=== PATIENT | male | born 1945 | race Caucasian/White ===

== ENCOUNTER 2022-06-16 07:27 | Emergency (ER) | payer MEDICARE ==
[~2022-06-16] VITALS: Ht 182.9 cm; Wt 108.4 kg
[2022-06-16] MEDS ORDERED: TDAP [DIPH/PERTUSSIS/TET] 0.5 ML VIAL IM ONE ×2 (07:51→08:00)
--- NOTE | 2022-06-16 08:30 | NUR ---
AT BEDSIDE FOR EVAL
--- NOTE | 2022-06-16 09:01 | NUR ---
[facility] FOR TRANSPORT WITH ETA OF 60 MINS.
--- NOTE | 2022-06-16 09:51 | NUR ---
EMT AT BEDSIDE TO PICKUP PT
--- NOTE | 2022-06-16 10:00 | NUR ---
Patient discharged back to [facility] via gurney, accompanied by 2 EMT. Written and verbal after care instructions given. Patient verbalizes understanding of instruction.
[2022-06-16 10:09] VITALS: BP 124/71
== END 2022-06-16 10:10 ==
LOC: ER 07:29
DX: S51.011A Laceration without foreign body of right elbow, initial encounter (principal); I48.91 Unspecified atrial fibrillation; Z88.0 Allergy status to penicillin; W01.0XXA Fall on same level from slipping, tripping and stumbling without subsequent striking against object, initial encounter; Y93.89 Activity, other specified; Y92.89 Other specified places as the place of occurrence of the external cause; Y99.8 Other external cause status
CPT/HCPCS: 99283; 12002; 90471; 90715; A6403

== ENCOUNTER 2023-08-17 14:23 | Emergency (ER) | payer MEDICARE ==
[~2023-08-17] VITALS: Ht 185.4 cm; Wt 106.6 kg
[2023-08-17] MEDS ORDERED: CLIN150C16 PO (15:02)
[2023-08-17] MEDS ORDERED: LIDO30CR TP (15:02)
[2023-08-17 17:37] VITALS: BP 119/63; TEMP 98; O2SAT 97
== END 2023-08-17 17:37 | disposition home or self-care (01) ==
LOC: ER 14:23
DX: L02.11 Cutaneous abscess of neck (principal); I48.91 Unspecified atrial fibrillation; N18.9 Chronic kidney disease, unspecified; Z88.0 Allergy status to penicillin

== ENCOUNTER 2023-11-10 08:45 | Inpatient (IN) | payer MEDICARE ==
[~2023-11-10] VITALS: Ht 185.4 cm; Wt 104.3 kg
[~2023-11-10 08:45] MED LIST: CLIN150C16 PO; LIDO30CR TP
[2023-11-10] MEDS ORDERED: APIX5TAB PO (10:19)
[2023-11-10] MEDS ORDERED: FURO-145 PO (10:19)
[2023-11-10] MEDS ORDERED: MELA3TAB41 PO (10:19)
[2023-11-10] MEDS ORDERED: MUPI22OI2 TP (10:19)
[2023-11-10] MEDS ORDERED: DORZ10DR11 LEFTEYE (10:19)
[2023-11-10] MEDS ORDERED: ACET-868 PO (10:19)
[2023-11-10] MEDS ORDERED: OXYB5TAB16 PO (10:19)
[2023-11-10] MEDS ORDERED: MEMA10TA PO (10:19)
[2023-11-10] MEDS ORDERED: QUET25TA PO (10:19)
[2023-11-10] MEDS ORDERED: GABA-532 PO (10:19)
[2023-11-10] MEDS ORDERED: PARO30TA4 PO (10:19)
[2023-11-10] MEDS ORDERED: ASPI-1169 PO (10:19)
[2023-11-10 10:23] LABS: APPEARANCE,URINE CLEAR (CLEAR); BILIRUBIN,URINE NEGATIVE (NEGATIVE); BLOOD, URINE 3+ Ery/uL (NEGATIVE); COLOR,URINE YELLOW (YELLOW); KETONES,URINE TRACE mg/dL (NEGATIVE); LEUKOCYTE ESTERASE ,URINE NEGATIVE (NEGATIVE); NITRITE, URINE NEGATIVE (NEGATIVE); PROTEIN,URINE 2+ mg/dl (NEGATIVE); UGLUCOSE NEGATIVE (NEGATIVE); UROBILINOGEN,URINE 0.2 EU/dL (0.2)
[2023-11-10 10:37] LABS: BASOPHILS % (AUTO) 0.5 % (0.0-2.0); EOSINOPHILS % (AUTO) 0.4 % (0.0-6.0); HEMATOCRIT 42 % (39-51); LYMPHOCYTES # (AUTO) 0.9 K/uL (0.8-4.8); LYMPHOCYTES % (AUTO) 8.9 % (20.0-44.0); MEAN CORPUSCULAR HEMOGLOBIN 30 PG (26.0-33.0); MEAN CORPUSCULAR HGB CONC 34 g/dl (31.0-36.0); MEAN CORPUSCULAR VOLUME 91 fL (80-96); MONOCYTES # (AUTO) 0.5 K/uL (0.1-1.30); MONOCYTES % (AUTO) 5.4 % (2.0-12.0); NEUTROPHILS # (AUTO) 8.6 K/uL (1.8-8.9); NEUTROPHILS % (AUTO) 84.8 % (43.0-81.0); PLATELET COUNT (AUTO) 173 K/uL (150-450); RED BLOOD CELL COUNT(AUTO) 4.58 MIL/uL (4.5-6.0); RED CELL DISTRIBUTION WIDTH 14.5 % (11.5-15.0); WHITE BLOOD COUNT (AUTO) 10.1 K/uL (4.3-11.0)
[2023-11-10 10:51] LABS: ADD URINE CULTURE NO; BACTERIA,URINE Rare /HPF (None Seen); RBC,URINE 21-50 /HPF (0-2); SQUAMOUS EPITHELIAL CELL,UR Few /HPF (None Seen)
[2023-11-10 11:00] LABS: ALANINE AMINOTRANSFERASE 40 U/L (12-78); ALBUMIN 3.9 g/dL (3.4-5.0); ALKALINE PHOSPHATASE 164 U/L (46-116); ASPARTATE AMINOTRANSFERASE 59 U/L (15-37); BILIRUBIN,DIRECT 0.2 mg/dL (0.0-0.2); CALCIUM, SERUM 9.6 mg/dL (8.5-10.1); CARBON DIOXIDE 27 mmol/L (21-32); CHLORIDE 100 mmol/L (98-107); CREATININE 1.3 mg/dL (0.6-1.3); GLUCOSE 134 mg/dL (74-106); POTASSIUM 4.1 mmol/L (3.5-5.1); SODIUM SERUM 136 mmol/L (136-145); UREA NITROGEN, BLOOD 17 mg/dL (7-18)
[2023-11-10] MEDS ORDERED: Z GUARD REMEDY 4 OZ OINT TP PRN (15:30)
[2023-11-10] MEDS ORDERED: DEXTROSE 50%-WATER 50 ML DISP.SYRIN IV PRN (15:30)
[2023-11-10] MEDS ORDERED: ONDANSETRON HCL/PF 4 MG/2 ML VIAL IVP PRN (15:30)
[2023-11-10] MEDS ORDERED: ACETAMINOPHEN 325 MG TABLET PO PRN (15:30)
[2023-11-10] MEDS ORDERED: MAGNESIUM HYDROXIDE 30 ML UDC PO PRN (15:30)
[2023-11-10] MEDS ORDERED: CEFTRIAXONE 1 G in IV D5W 50 ML IV SCH (17:00)
[2023-11-10] MEDS ORDERED: TIMOLOL MAL/DORZOLAM HCL OPHTH 10 ML BOTTLE LEFTEYE SCH (17:00)
[2023-11-10] MEDS: BLOOD SUGAR DIAGNOSTIC 1 EACH STRIP IN SCH (17:55)
[2023-11-10] MEDS: LEVOFLOXACIN (250MG) 250 MG TABLET PO SCH (17:57)
[2023-11-10] MEDS: QUETIAPINE FUMARATE 25 MG TABLET PO SCH (17:57)
[2023-11-10] MEDS: APIXABAN 5 MG TABLET PO SCH (17:58)
[2023-11-10] MEDS ORDERED: ENOXAPARIN SODIUM 40 MG/0.4 ML DISP.SYRIN SQ SCH (18:00)
[2023-11-10] MEDS: IV NS 0.9% 1,000 ML IV PRN (18:02)
[2023-11-10 20:00] VITALS: BP 126/83; TEMP 99.1; O2SAT 96
[2023-11-10] MEDS: GABAPENTIN 300 MG CAPSULE PO SCH (21:48)
[2023-11-10] MEDS: INSULIN REGULAR, HUMAN 100 UNIT/ML 3 ML VIAL SQ PRN (22:01)
[2023-11-11] VITALS: BP 113/74; TEMP 98.2; O2SAT 95
[2023-11-11 04:00] VITALS: BP 144/112; TEMP 98.4; O2SAT 95
[2023-11-11] MEDS: PANTOPRAZOLE 40 MG TABLET.DR PO SCH (07:43)
[2023-11-11 07:56] LABS: BASOPHILS % (AUTO) 0.3 % (0.0-2.0); EOSINOPHILS # (AUTO) 0.1 K/uL (0.0-0.7); HEMATOCRIT 36 % (39-51); HEMOGLOBIN 12.5 g/dL (13.5-17.5); LYMPHOCYTES # (AUTO) 1.3 K/uL (0.8-4.8); LYMPHOCYTES % (AUTO) 15.3 % (20.0-44.0); MEAN CORPUSCULAR HEMOGLOBIN 31 PG (26.0-33.0); MEAN CORPUSCULAR HGB CONC 34 g/dl (31.0-36.0); MEAN CORPUSCULAR VOLUME 91 fL (80-96); MONOCYTES # (AUTO) 0.7 K/uL (0.1-1.30); MONOCYTES % (AUTO) 8.5 % (2.0-12.0); NEUTROPHILS # (AUTO) 6.5 K/uL (1.8-8.9); NEUTROPHILS % (AUTO) 74.9 % (43.0-81.0); PLATELET COUNT (AUTO) 155 K/uL (150-450); RED BLOOD CELL COUNT(AUTO) 3.97 MIL/uL (4.5-6.0); RED CELL DISTRIBUTION WIDTH 14.5 % (11.5-15.0); WHITE BLOOD COUNT (AUTO) 8.6 K/uL (4.3-11.0)
[2023-11-11] MEDS: TIMOLOL MAL/DORZOLAM HCL OPHTH 10 ML BOTTLE LEFTEYE SCH (08:29)
[2023-11-11] MEDS: OXYBUTYNIN CHLORIDE 5 MG TABLET PO SCH (08:30)
[2023-11-11] MEDS: MEMANTINE HCL 5 MG TABLET PO SCH (08:30)
[2023-11-11] MEDS: PAROXETINE HCL 10 MG TABLET PO SCH (08:30)
[2023-11-11] MEDS: ASPIRIN 81 MG TAB.CHEW PO SCH (08:30)
[2023-11-11 08:36] LABS: CALCIUM, SERUM 9.1 mg/dL (8.5-10.1); CREATININE 1.1 mg/dL (0.6-1.3); PHOSPHORUS 3.7 mg/dL (2.5-4.9)
[2023-11-11 09:01] VITALS: BP 145/95; TEMP 99.1; O2SAT 99
[2023-11-11] MEDS: ENOXAPARIN SODIUM 40 MG/0.4 ML DISP.SYRIN SQ SCH (09:46)
[2023-11-11 12:00] VITALS: BP 127/78; TEMP 98.1; O2SAT 96
[2023-11-11] MEDS: METOPROLOL TARTRATE 25 MG TABLET PO SCH (12:22)
[2023-11-11 16:46] VITALS: BP 130/81; TEMP 98.4; O2SAT 94
[2023-11-11 20:00] VITALS: BP_SYST 118; BP_SYST 134; BP_DIAS 65; BP_DIAS 83; TEMP 97.7; TEMP 99.1; O2SAT 97; O2SAT 98
[2023-11-11] MEDS: ATORVASTATIN 10 MG TABLET PO SCH (21:15)
[2023-11-12] VITALS (7 sets, daily range): BP systolic 114–144; BP diastolic 60–100; TEMP 97.5–98.9; O2SAT 93–97
[2023-11-12 06:56] LABS: BASOPHILS % (AUTO) 0.5 % (0.0-2.0); EOSINOPHILS # (AUTO) 0.2 K/uL (0.0-0.7); EOSINOPHILS % (AUTO) 2.5 % (0.0-6.0); HEMATOCRIT 38 % (39-51); HEMOGLOBIN 12.9 g/dL (13.5-17.5); LYMPHOCYTES # (AUTO) 1.3 K/uL (0.8-4.8); LYMPHOCYTES % (AUTO) 15.9 % (20.0-44.0); MEAN CORPUSCULAR HEMOGLOBIN 32 PG (26.0-33.0); MEAN CORPUSCULAR HGB CONC 34 g/dl (31.0-36.0); MEAN CORPUSCULAR VOLUME 92 fL (80-96); MONOCYTES # (AUTO) 0.7 K/uL (0.1-1.30); MONOCYTES % (AUTO) 8.8 % (2.0-12.0); NEUTROPHILS % (AUTO) 72.3 % (43.0-81.0); PLATELET COUNT (AUTO) 134 K/uL (150-450); RED BLOOD CELL COUNT(AUTO) 4.07 MIL/uL (4.5-6.0); RED CELL DISTRIBUTION WIDTH 14.6 % (11.5-15.0); WHITE BLOOD COUNT (AUTO) 8.3 K/uL (4.3-11.0)
[2023-11-12 07:02] LABS: CALCIUM, SERUM 8.9 mg/dL (8.5-10.1); PHOSPHORUS 3.2 mg/dL (2.5-4.9); POTASSIUM 4.3 mmol/L (3.5-5.1)
[2023-11-13] VITALS (7 sets, daily range): BP systolic 116–146; BP diastolic 63–91; TEMP 97.3–99; O2SAT 94–99
[2023-11-13 09:42] LABS: CREATININE 1.1 mg/dL (0.6-1.3); PHOSPHORUS 3.8 mg/dL (2.5-4.9)
[2023-11-13 09:52] LABS: THYROID STIMULATING HORMONE 2.214 uIU/mL (0.358-3.74); URIC ACID 4.7 mg/dL (2.6-7.2)
[2023-11-13] MEDS ORDERED: METO25TA20 PO (12:11)
[2023-11-13] MEDS: POVIDONE-IODINE OINT 28.4 GM TUBE TP SCH (16:52)
== END 2023-11-13 17:30 | disposition home health service (06) | DRG 280 ==
LOC: ER 09:01 → TELE 15:33
PROVIDERS: ADMIT Nurse Practitioner Family; ATTEND Nurse Practitioner Acute Care
DX: I21.4 Non-ST elevation (NSTEMI) myocardial infarction (principal); G93.41 Metabolic encephalopathy; I13.0 Hypertensive heart and chronic kidney disease with heart failure and stage 1 through stage 4 chronic kidney disease, or unspecified chronic kidney disease; N39.0 Urinary tract infection, site not specified; E87.1 Hypo-osmolality and hyponatremia; I50.9 Heart failure, unspecified; N18.9 Chronic kidney disease, unspecified; Z66 Do not resuscitate; R26.9 Unspecified abnormalities of gait and mobility; E11.22 Type 2 diabetes mellitus with diabetic chronic kidney disease; E11.51 Type 2 diabetes mellitus with diabetic peripheral angiopathy without gangrene; G31.09 Other frontotemporal neurocognitive disorder; F02.80 Dementia in other diseases classified elsewhere, unspecified severity, without behavioral disturbance, psychotic disturbance, mood disturbance, and anxiety; N40.0 Benign prostatic hyperplasia without lower urinary tract symptoms; Z87.820 Personal history of traumatic brain injury; G93.89 Other specified disorders of brain; I48.91 Unspecified atrial fibrillation; K80.20 Calculus of gallbladder without cholecystitis without obstruction; Z79.01 Long term (current) use of anticoagulants; Z79.82 Long term (current) use of aspirin; Z88.0 Allergy status to penicillin; Z79.899 Other long term (current) drug therapy; S90.122A Contusion of left lesser toe(s) without damage to nail, initial encounter; S90.121A Contusion of right lesser toe(s) without damage to nail, initial encounter; X58.XXXA Exposure to other specified factors, initial encounter; Y92.9 Unspecified place or not applicable; W34.00XS Accidental discharge from unspecified firearms or gun, sequela
CPT/HCPCS: 36415; 70450-TC; 71045-TC; 80048-TC; 80061-TC; 80076-TC; 81001; 82533; 82962-TC; 83540-TC; 83735-TC; 84100-TC; 84443-TC; 84484-TC; 84550-TC; 85025-TC; 92526; 92611-TC; 93307-TC; 93970-TC; 97110-TC; 97530-TC; A4223; G0378; J1650; J1815; J7030

== ENCOUNTER 2025-08-24 11:12 | Inpatient (IN) | payer MEDICARE, OTHER ==
[~2025-08-24] VITALS: Ht 175.3 cm; Wt 122.9 kg
[~2025-08-24 11:12] MED LIST changes: +ACET-868 PO; +APIX5TAB PO; +ASPI-1169 PO; -CLIN150C16 PO; +DORZ10DR11 LEFTEYE; +FURO-145 PO; +GABA-532 PO; -LIDO30CR TP; +MELA3TAB41 PO; +MEMA10TA PO; +METO25TA20 PO; +MUPI22OI2 TP; +OXYB5TAB16 PO; +PARO30TA4 PO; +QUET25TA PO
--- NOTE | 2025-08-24 11:25 | NUR ---
[facility] FOR NOTED BLOOD IN HIS DIAPER TODAY. PLACED IN BED6, AAOX3, BREATHING EVEN AND UNLABORED SATURATING AT 97%RA
--- NOTE | 2025-08-24 11:27 | NUR ---
[facility] SCREENING TOOL COMPLETED
--- NOTE | 2025-08-24 11:27 | NUR ---
CONTACTED NURSE SUP FOR BED
--- NOTE | 2025-08-24 11:42 | NUR ---
[facility] SWAB COLLECTED AND SENT
--- NOTE | 2025-08-24 11:43 | NUR ---
322-1, ER ADMITTING AWARE
[2025-08-24] MEDS ORDERED: MELA5TAB PO (11:55)
[2025-08-24] MEDS ORDERED: GUAI-755 PO (11:55)
[2025-08-24] MEDS ORDERED: METO25TA6 PO (11:55)
[2025-08-24] MEDS ORDERED: ATOR20TA PO (11:55)
[2025-08-24] MEDS ORDERED: HYDR-4076 PO (11:55)
[2025-08-24] MEDS ORDERED: MELA5TAB25 PO (11:55)
[2025-08-24] MEDS ORDERED: METF-881 PO (11:55)
[2025-08-24] MEDS ORDERED: TRAZ-182 PO (11:55)
[2025-08-24] MEDS ORDERED: TRAZ-257 PO (11:55)
--- NOTE | 2025-08-24 12:00 | NUR ---
blood drawn and sent to lab
[2025-08-24] MEDS ORDERED: LIDOCAINE 2% JEL UROJET 10 ML MM ONE (12:01)
[2025-08-24 12:04] LABS: RED BLOOD CELL COUNT(AUTO) 3.92 MIL/uL (4.5-6.0); RED CELL DISTRIBUTION WIDTH 16.4 % (11.5-15.0); WHITE BLOOD COUNT (AUTO) 3.6 K/uL (4.3-11.0)
[2025-08-24 12:13] LABS: ASPARTATE AMINOTRANSFERASE 38 U/L (15-37); CALCIUM, SERUM 9.3 mg/dL (8.5-10.1); CREATININE 1.0 mg/dL (0.6-1.3); SODIUM SERUM 139 mmol/L (136-145); TOTAL PROTEIN, SERUM 7.7 g/dL (6.4-8.2); UREA NITROGEN, BLOOD 24 mg/dL (7-18)
--- NOTE | 2025-08-24 12:15 | NUR ---
3WAY WEISS CATH INSERTED WITH LOCAL ANESTHESIA UROJET URINE OUTPUT CLEAR- NO BLEEDING MD MADE AWARE, SAMPLE SENT TO LAB.
--- NOTE | 2025-08-24 12:25 | NUR ---
urine sample sent to lab
[2025-08-24 12:33] LABS: PLATELET COUNT (AUTO) 64 K/uL (150-450)
[2025-08-24 12:40] LABS: INR 1.23 (0.91-1.10)
[2025-08-24 12:47] LABS: LACTIC ACID 2.2 mmol/L (0.4-2.0)
[2025-08-24] MEDS ORDERED: ZOLPIDEM TARTRATE 5 MG TABLET PO PRN (13:00)
[2025-08-24] MEDS ORDERED: ONDANSETRON HCL/PF 4 MG/2 ML VIAL IVP PRN (13:00)
[2025-08-24] MEDS ORDERED: ACETAMINOPHEN 325 MG TABLET PO PRN (13:00)
[2025-08-24] MEDS ORDERED: MAGNESIUM HYDROXIDE 30 ML UDC PO PRN (13:00)
[2025-08-24] MEDS ORDERED: Z GUARD REMEDY 4 OZ OINT TP PRN (13:00)
[2025-08-24] MEDS ORDERED: MAG HYDROX/AL HYDROX/SIMETH 30 ML UDC PO PRN (13:00)
--- NOTE | 2025-08-24 13:02 | NUR ---
REPORT GIVEN TO JOSEY MENDOZA ROOM 322-1 FOR ABELARDO
[2025-08-24 13:06] LABS: APPEARANCE,URINE Turbid (CLEAR); BLOOD, URINE Large Ery/uL (NEGATIVE); LEUKOCYTE ESTERASE ,URINE Small (NEGATIVE); UGLUCOSE Negative (NEGATIVE)
[2025-08-24 13:07] LABS: ADD URINE CULTURE YES; NITRITE, URINE POSITIVE (NEGATIVE); SQUAMOUS EPITHELIAL CELL,UR Rare /HPF (None Seen)
[2025-08-24] MEDS ORDERED: LEVOFLOXACIN 750 MG /D5W 150ML 150 ML IV ONE (13:13)
[2025-08-24 13:18] VITALS: BP 127/92; TEMP 88.7; O2SAT 98
[2025-08-24] MEDS: LEVOFLOXACIN 750 MG /D5W 150ML 750 MG in PREMIX 1 EA IV SCH (13:19)
--- NOTE | 2025-08-24 13:33 | NUR ---
PATIENT TRANSFERED AND ADMITTED FOR ABELARDO
--- NOTE | 2025-08-24 14:00 | NUR ---
MS QA SPECIALIST NOTES ADMITTED PATIENT FROM ER TO UNIT VIA RNEY AT 1318 TRANSPORTED BY ER STAFF WITH DX OF HEMATURIA. REPORT GIVEN BY TRESA MENDOZA. PATIENT IS A/O X1, VERY WEAK AND LETHARGIC. ON ROOM AIR, BREATHING EVEN AND UNLABORED, NO S/S OF ACUTE RESPIRATORY DISTRESS NOTED. PATIENT IS MOUTH BREATHER. VITAL SIGNS TAKEN AND RECORDED. PATIENT NOTED WITH COLD AND CLAMMY SKIN AND LOW TEMPERATURE (88.7F), PATIENT PLACED ON HEATED BEAR HUGGER. SKIN ASSESSMENT PERFORMED, PHOTOS OF SKIN ISSUES TAKEN AND PLACED IN CHART. WITH IV ACCESS ON RIGHT FA #20G, PATENT, INTACT, SL. PATIENT ORIENTED TO AM STAFF AND HOW TO USE THE CALL LIGHT. ALL BELONGINGS ACCOUNTED FOR BY ASHLEY Clifford. ALL SAFETY PRECAUTIONS IMPLEMENTED: BED PLACED IN LOW AND LOCKED POSITION, SIDE-RAILS UP X3, BED ALARM ON, CALL LIGHT AND TRAY TABLE WITHIN REACH. CN DANNY AWARE OF ADMISSION
[2025-08-24 14:21] LABS: LYMPHOCYTES % (MANUAL) 14 % (16-48); MONOCYTES % (MANUAL) 3 % (0-11.0); NEUTROPHILS % (MANUAL) 83 (42-76); PLATELET ESTIMATE DECREASED
[2025-08-24 16:00] VITALS: BP 117/92; O2SAT 98
--- NOTE | 2025-08-24 17:37 | NUR ---
RN NOTE RECHECKED TEMPERATURE AFTER PLACING VALERIE HUGGER ON PATIENT: TEMP 91.8F
--- NOTE | 2025-08-24 18:57 | NUR ---
MS RN CLOSING NOTE LEFT PATIENT AWAKE IN BED. A/O X 2-3, FORGETFUL. ON ROOM AIR, BREATHING EVEN AND UNLABORED, NO S/S OF ACUTE RESPIRATORY DISTRESS NOTED, PATIENT IS A MOUTH BREATHER. WITH 3-WAY WEISS CATHETER CONNECTED TO URINE BAG DRAINING VIA GRAVITY, SOME CLOTS NOTED IN URINE OUTPUT. WITH IV ACCESS ON LEFT HAND #20G, INTACT, PATENT, SL. WITH VALERIE HUGGER HEATED BLANKET. ALL DUE MEDS GIVEN AND NEEDS MET. ALL FALL AND SAFETY MEASURES MAINTAINED PER HOSPITAL PROTOCOL. PLAN OF CARE ONGOING. WILL ENDORSE PLAN OF CARE TO RADIOLOGY RESIDENT NURSE.
--- NOTE | 2025-08-24 19:53 | NUR ---
MS RN OPENING NOTES PATIENT AWAKE AND RESTING COMFORTABLY ON BED WITH HEAD OF BED ELEVATED. ALERT AND ORIENTED X 1, NOTED TO HAVE CONFUSION. CALM AND COOPERATIVE AT THIS TIME DESPITE CONFUSION. ON ROOM AIR SATURATING WELL WITH SPO2 OF 98% AND WITH EVEN AND NONLABORED BREATHING. NO CARDIAC OR RESPIRATORY DISTRESS NOTED AT THIS TIME. NO NONVERBAL OR VERBAL CUES OF PAIN NOTED. WITH IV ACCESS ON HIS LEFT HAND GAUGE # 20 ON SALINE LOCKED, PATENT, INTACT AND FLUSHING WELL. ON BED REST. WITH 3 WAY WEISS CATHETER DRAINING URINE VIA GRAVITY AND URINE BAG PLACED BELOW THE BLADDER. NO HEMATURIA NOTED AT THIS TIME. ON VALERIE HUGGER BLANKET. ALL FALL AND SAFETY MEASURES IMPLEMENTED: BED IN LOWEST AND LOCKED POSITION, BED ALARM ON, SIDE RAILS X 3, CALL LIGHT AND TABLE PLACED WITHIN PATIENT'S REACH. NO FURTHER NEEDS NOTED AT THIS TIME.
[2025-08-24 20:00] VITALS: BP 126/62; TEMP 97.3; O2SAT 98
[2025-08-25] VITALS (17 sets, daily range): BP systolic 87–134; BP diastolic 49–93; TEMP 98.6–104.4; O2SAT 92–100
[2025-08-25] MEDS: IV 1/2NS 1000 ML 1,000 ML IV PRN (05:19)
--- NOTE | 2025-08-25 05:50 | NUR ---
MS RN NOTES BED BATH PROVIDED WITH THE HELP OF ASHLEY EASLEY. BED LINES CHANGED.
--- NOTE | 2025-08-25 07:01 | NUR ---
MS RN CLOSING NOTES PATIENT MOSTLY AWAKE THE WHOLE SHIFT AND RESTING ON BED WITH HEAD OF BED ELEVATED. ALERT AND ORIENTED X 1, NOTED TO BE CONFUSED. CALM AND COOPERATIVE WITHIN THE SHIFT DESPITE CONFUSION. STILL ON ROOM AIR SATURATING WELL WITH SPO2 OF 98% AND WITH EVEN AND NONLABORED BREATHING. NO CARDIAC OR RESPIRATORY DISTRESS NOTED WITHIN THE SHIFT. NO NONVERBAL OR VERBAL CUES OF PAIN NOTED. STILL WITH IV ACCESS ON HIS LEFT HAND GAUGE # 20 PATENT, INTACT AND INFUSING 1/2 NS AT 60 ML/HR WELL. ON BED REST. STILL WITH 3 WAY WEISS CATHETER DRAINING TEA COLORED URINE. URINE BAG EMPTIED AND RECORDED. NO HEMATURIA NOTED WITHIN THE SHIFT. STILL ON VALERIE HUGGER BLANKET. KEPT SAFE AND COMFORTABLE. ALL NURSING NEEDS AND CONCERNS ATTENDED. ALL FALL AND SAFETY MEASURES MAINTAINED: BED STILL IN LOWEST AND LOCKED POSITION, BED ALARM ON, SIDE RAILS X 3, CALL LIGHT AND TABLE PLACED WITHIN PATIENT'S REACH. WILL ENDORSE TO MORNING SHIFT RN FOR CONTINUITY OF CARE.
[2025-08-25] MEDS: PANTOPRAZOLE 40 MG TABLET.DR PO SCH (07:30)
[2025-08-25 07:39] LABS: PLATELET COUNT (AUTO) 98 K/uL (150-450); RED BLOOD CELL COUNT(AUTO) 3.88 MIL/uL (4.5-6.0); RED CELL DISTRIBUTION WIDTH 17.2 % (11.5-15.0); WHITE BLOOD COUNT (AUTO) 6.7 K/uL (4.3-11.0)
[2025-08-25 08:38] LABS: ABG BASE EXCESS 1.5 mmol/L (-2.0-3.0); ABG OXYGEN SATURATION 86.8 % (94.0-98.0); ABG PCO2 30.3 mmHg (35.0-48.0); ABG PH 7.512 (7.350-7.450); ABG PO2 48.0 mmHg (83.0-108.0); ABG TOTAL HEMOGLOBIN 12.9 G/dL (13.5-17.5); FLOW, BLOOD GAS 5.00 L/min (0.00-30.00); FRACTIONATED INSPIRED OXYGEN 40.0 %; SITE, ABG RIGHT RADIAL
--- NOTE | 2025-08-25 08:43 | NUR ---
RN OPENING NOTES PT A/OX1. PATIENT BREATHING LABORED WITH SOB. O2 SAT 89, BP 169/146 AND HEART RATE 126. TELE APPLIED TO PATIENT AND READING WAS AFIB I 140S. RT AND MD NOTIFIED. CXR AND ABG, AND EKG STAT ORDERED. 5L NC AND SUCTIONING APPLIED TO PATIENT AND O2SAT READING 91. MD ORDERED PATIENT TRANSFER TO ICU. TRANSFERRED TO ICU ROOM 257 AND REPORT GIVEN TO MARIO MENDOZA
[2025-08-25 08:53] LABS: LDL 37.0 mg/dL (0-99)
[2025-08-25] MEDS: FUROSEMIDE 20 MG TABLET PO SCH (09:00)
[2025-08-25] MEDS: QUETIAPINE FUMARATE 25 MG TABLET PO SCH (09:00)
[2025-08-25] MEDS ORDERED: HEPARIN INFUSION/D5W 500 ML IV PRN (09:00)
[2025-08-25] MEDS: OXYBUTYNIN CHLORIDE 5 MG TABLET PO SCH (09:00)
--- NOTE | 2025-08-25 09:00 | NUR ---
ICU/RN PT TRANSFERRED FROM [facility] UNIT.DUE TO SOB RR MORE THEN 50. PLACED ON 5L N/C SAT O2-95%.HR-130-140 BPM A-FIB. T-104.4. ALOC . RESPONSIVE ON PAIN STIMULATION.F/C IN PLACE DRAINING WITH RANDY URINE WITH BLOOD CLOTH. BILATERAL LOWER LEGS EDEMA PRESENT.LABS REVIEW. COOLING MEASURES PROVIDED.
--- NOTE | 2025-08-25 09:20 | NUR ---
MIDLINE RN NOTES RIGHT ARM ULTRASOUND PERFORMED TO IDENTIFY ADEQUATE VEIN FOR MIDLINE INSERTION. RIGHT ARM PREPPED USING STERILE TECHNIQUE. POWERGLIDE 18G/10CM WAS INSERTED AT RIGHT BASILIC VEIN WITH EASE, GOOD NON PULSATILE BLOOD RETURN, SECURED WITH INTERLOCK DEVICE AND PLACED BIOPATCH. DRESSED USING NORMAL STERILE FASHION. EACH PORT WAS ASPIRATED WITH VENOUS BLOOD AND EACH PORT WAS FLUSHED WITH 10ML OF NORMAL SALINE. PROCEDURE WELL TOLERATED BY THE PT. SUPERVISED BY DR.EM LOZANO PhD. ENDORSED TO MARIO MENDOZA.
[2025-08-25] MEDS ORDERED: IOHEXOL-350 100 ML VIAL IV ONE (09:52)
[2025-08-25] MEDS ORDERED: IV NS 0.9% 250 ML IV ONE (09:53)
[2025-08-25] MEDS ORDERED: CT SWABBABLE VALVE TRANS SET 1 EA INFUS.SET MC ONE (09:53)
[2025-08-25] MEDS ORDERED: FUROSEMIDE 20 MG/2 ML VIAL IV SCH (10:00)
--- NOTE | 2025-08-25 10:10 | NUR ---
ICU/RN CT HEAD ,AND CT PULMONARY ANGIOGRAM DONE ORDERED. COOLING BLANKET ON.DUE MEDS ARE GIVEN ORDERED.REPOSITION FOR COMFORT.
[2025-08-25] MEDS: ACETAMINOPHEN 650 MG/SUPP.RECT RC PRN (10:29)
[2025-08-25] MEDS: FUROSEMIDE 40 MG/4 ML VIAL IV SCH (10:29)
[2025-08-25 10:30] LABS: CALCIUM, SERUM 9.4 mg/dL (8.5-10.1); CREATININE 1.6 mg/dL (0.6-1.3); PHOSPHORUS 2.9 mg/dL (2.5-4.9); SODIUM SERUM 141.0 mmol/L (136-145); UREA NITROGEN, BLOOD 26.0 mg/dL (7-18)
[2025-08-25] MEDS: PANTOPRAZOLE 40 MG VIAL IV SCH (10:30)
[2025-08-25 10:46] LABS: IRON, SERUM 63.0 ug/dl (50-175)
[2025-08-25] MEDS ORDERED: DOSING PER PHARMACY-VANCOMYCIN IV XX PRN (13:00)
[2025-08-25] MEDS ORDERED: DOSING PER PHARMACY-CEFEPIME IVPB XX PRN (13:00)
[2025-08-25 13:41] LABS: INR 1.39 (0.91-1.10)
[2025-08-25 13:41] LABS: LYMPHOCYTES % (MANUAL) 6 % (16-48); MONOCYTES % (MANUAL) 6 % (0-11.0); NEUTROPHILS % (MANUAL) 88 (42-76); PLATELET ESTIMATE DECREASED
[2025-08-25] MEDS ORDERED: LEVOFLOXACIN 750 MG /D5W 150ML 750 MG in PREMIX 1 EA IV SCH (14:00)
[2025-08-25] MEDS: CEFEPIME 1 GM in IV D5W 50 ML IV SCH (14:02)
[2025-08-25] MEDS: VANCOMYCIN HCL 1.25 GM in IV D5W 250 ML IV ONE ×2 (14:03→15:58)
[2025-08-25] MEDS: TIMOLOL MAL/DORZOLAM HCL OPHTH 10 ML BOTTLE LEFTEYE SCH (16:08)
--- NOTE | 2025-08-25 16:35 | NUR ---
ICU/RN PM CARE PROVIDED. PT IS AWAKE,ALERT,O-1.CONFUSED . SPEECH DELAY. DUE MEDS ARE GIVEN ORDERED,NPO.PO MEDS HOLD ,HIGH RISK OF ASPIRATION ,HAS SOME COUGH ,SWALLOW EVALUATION ORDERED. V/S STABLE,AFEBRILE,NO PAIN REPORTED AT THIS TIME. REPOSITION FOR COMFORT. CONTINUE MONITORING.
[2025-08-25] MEDS: METOPROLOL TARTRATE 25 MG TABLET PO SCH (17:30)
--- NOTE | 2025-08-25 20:00 | NUR ---
curriculum counselor, bed side swallow evaluation patient failed.
--- NOTE | 2025-08-25 20:02 | NUR ---
SUPERVISOR PAPER MACHINE. INITIAL ASSESSMENT. RECEIVED THE PT REST IN BED. AOX3. OXYGEN 2L VIA NASAL CANNULA. SAT 99%. NO ACUTE DISTRESS NOTED. X RAY SERVICE TECHNICIAN SHOWING A FIB. HOB ELEVATED. IV RT UPPER ARM MID LINE.TKO RUNNING. FC PATENT URINE DRAINING. NO HEMATURIA PRESENT.EJD LOWER EXTREMITY DISCOLORATION, HX OF PVD. TEMPERATURE IS 98.5. WILL MONITOR VITALS.
[2025-08-25] MEDS: TRAZODONE 50 MG TABLET PO SCH (22:00)
[2025-08-25] MEDS: GABAPENTIN 300 MG CAPSULE PO SCH (22:00)
[2025-08-25] MEDS: ATORVASTATIN 10 MG TABLET PO SCH (22:00)
--- NOTE | 2025-08-25 22:06 | NUR ---
APPLE SORTER. LIPITOR, NEURONTIN AND DESYREL NOT GIVEN AT 2200 DUE TO PATIENT COUGHING , SWALLOW EVALUATION SCHEDULED FOR TOMORROW . REPAIR MILLER SHOLA NOTIFIED.
[2025-08-26] VITALS (35 sets, daily range): BP systolic 101–143; BP diastolic 62–86; TEMP 97.8–98.1; O2SAT 95–99
--- NOTE | 2025-08-26 03:37 | NUR ---
ICU AM an care given. remaining same oxYgen tolerated well. satURATION N99%. NO ACUTE DISTRESS NOTED. CUSTOMS AND BORDER PROTECTION INSPECTOR SHOWING. A FIB. ; FC PATENT. IV RT UPPER ARM MID LINE. TKO RUNNING. HOB ELEVATED. TURN A,D REPOSIYION Q2H WILL CONTINUE TO MONITOR VITALS.
[2025-08-26 04:55] LABS: PLATELET COUNT (AUTO) 82 K/uL (150-450); RED BLOOD CELL COUNT(AUTO) 3.69 MIL/uL (4.5-6.0); RED CELL DISTRIBUTION WIDTH 17.0 % (11.5-15.0); WHITE BLOOD COUNT (AUTO) 5.6 K/uL (4.3-11.0)
[2025-08-26 05:04] LABS: ASPARTATE AMINOTRANSFERASE 30.0 U/L (15-37); CALCIUM, SERUM 9.1 mg/dL (8.5-10.1); CREATININE 1.7 mg/dL (0.6-1.3); PHOSPHORUS 3.6 mg/dL (2.5-4.9); TOTAL PROTEIN, SERUM 7.1 g/dL (6.4-8.2); UREA NITROGEN, BLOOD 30.0 mg/dL (7-18)
[2025-08-26 05:43] LABS: SODIUM SERUM 138.0 mmol/L (136-145)
[2025-08-26 06:03] LABS: LYMPHOCYTES % (MANUAL) 21 % (16-48); MONOCYTES % (MANUAL) 12 % (0-11.0); NEUTROPHILS % (MANUAL) 67 (42-76); PLATELET ESTIMATE DECREASED
--- NOTE | 2025-08-26 07:29 | NUR ---
EVIDENCE CUSTODIAN.COUNTY HEALTH OFFICER SHOWING PAUSES DURING SHIFT. DR BERNABE NOTIFIED.
--- NOTE | 2025-08-26 07:45 | NUR ---
ICU/RN PT IS RESTING.ON 2 L N/C SAT O2-98%.V/S STABLE,AFEBRILE.NO PAIN REPORTED ATT HIS TIME. CONTROL A-FIB ON MONITOR. PT IS AWAKE,ALERT-1-2. RIGHT UPPER ARM MIDLINE.F/C IN PLACE DRAINING WITH YELLOW URINE.LABS REVIEW.MD AWARE. REPOSITION FOR COMFORT.
[2025-08-26] MEDS: MEMANTINE HCL 5 MG TABLET PO SCH (08:41)
[2025-08-26] MEDS: PANTOPRAZOLE 40 MG TABLET.DR PO SCH (08:41)
[2025-08-26] MEDS: APIXABAN 5 MG TABLET PO SCH (08:57)
--- NOTE | 2025-08-26 09:00 | NUR ---
ICU/RN DUE MEDS ARE GIVEN CRUSH AND MIX WITH APPLE SAUCE.
[2025-08-26 13:50] LABS: CREATININE, URINE 141.0 MG/DL (30.0-125.0); URINE SODIUM, RANDOM 63.0 mmol/l (40-220); URINE TOTAL PROTEIN 75.2 mg/dL (0-11.9)
[2025-08-26 14:14] LABS: APPEARANCE,URINE SLIGHTLY CLOUDY (CLEAR); BLOOD, URINE 2+ Ery/uL (NEGATIVE); LEUKOCYTE ESTERASE ,URINE TRACE (NEGATIVE); NITRITE, URINE NEGATIVE (NEGATIVE); UGLUCOSE NEGATIVE (NEGATIVE)
[2025-08-26 15:12] LABS: SQUAMOUS EPITHELIAL CELL,UR Few /HPF (None Seen)
[2025-08-26 15:13] LABS: ADD URINE CULTURE YES
[2025-08-26 15:41] LABS: EOSINOPHIL,URINE None Seen
[2025-08-26] MEDS ORDERED: VANCOMYCIN HCL 1.25 GM in IV D5W 250 ML IV SCH (16:00)
--- NOTE | 2025-08-26 17:15 | NUR ---
ICU/RN PT HAS HEMATURIA. VONNIE PO HOLD. NOTIFIED.
--- NOTE | 2025-08-26 17:53 | NUR ---
ICU/RN PM CARE PROVIDED.PT EATS 100% FROM HIS DINNER TRAY.NEED ASSISTANCE. DUE MEDS ARE GIVEN ORDERED.V/S STABLE AFEBRILE.NO PAIN REPORTED AT THIS TIME. CONTINUE MONITORING.
--- NOTE | 2025-08-26 19:20 | NUR ---
LIQUOR DEPARTMENT MANAGER NOTES: Received patient in bed, alert and oriented to person, place, and time. Denies shortness of breath or chest pain. On 2L O2 via nasal cannula, SpO2 98%. awake overnight monitor shows atrial fibrillation with ventricular rate 80s bpm. Patient resting comfortably in bed, no acute distress observed. KASSIE ML 18G right upper arm intact and patent, normal saline at TKO rate infusing without signs of infiltration or phlebitis. Martinez catheter in place draining reddish-colored urine by gravity, 30 ML. Reviewed laboratory results with no critical values reported. Safety measures in place: bed in low position, call light within reach, bed alarm activated. Will continue plan of care.
[2025-08-27] VITALS (11 sets, daily range): BP systolic 116–145; BP diastolic 68–124; TEMP 97.7–98.2; O2SAT 96–100
[2025-08-27 05:13] LABS: PLATELET COUNT (AUTO) 89 K/uL (150-450); RED BLOOD CELL COUNT(AUTO) 3.71 MIL/uL (4.5-6.0); RED CELL DISTRIBUTION WIDTH 16.6 % (11.5-15.0); WHITE BLOOD COUNT (AUTO) 7.5 K/uL (4.3-11.0)
[2025-08-27 05:22] LABS: ASPARTATE AMINOTRANSFERASE 32.0 U/L (15-37); CALCIUM, SERUM 9.1 mg/dL (8.5-10.1); CREATININE 1.2 mg/dL (0.6-1.3); PHOSPHORUS 3.4 mg/dL (2.5-4.9); SODIUM SERUM 138.0 mmol/L (136-145); TOTAL PROTEIN, SERUM 7.5 g/dL (6.4-8.2); UREA NITROGEN, BLOOD 26.0 mg/dL (7-18)
[2025-08-27 05:25] LABS: CREATINE KINASE, TOTAL 138.0 U/L (39-308)
[2025-08-27 06:08] LABS: LYMPHOCYTES % (MANUAL) 22 % (16-48); MONOCYTES % (MANUAL) 10 % (0-11.0); NEUTROPHILS % (MANUAL) 68 (42-76); PLATELET ESTIMATE DECREASED
--- NOTE | 2025-08-27 06:44 | NUR ---
ASSEMBLER SURGICAL GARMENT NOTES: No significant change of condition, remains on 2L O2 NC, saturating 100%. Bedside monitor shows: afib at the 70s BPM. No acute distress noted all through the shift. Martinez cath in place, urine draining freely by gravity. All due meds given as ordered. Labs reviewed, no critical lab results reported. AM care and bedbath rendered. Safety measures in place. Will endorse to incoming day shift nurse for continuity of care.
--- NOTE | 2025-08-27 07:55 | NUR ---
PATIENT DOWNGRADED TO TELEMETRY, PER DR ORDER; TRANSFERRED SAFELY, PER ACLS PROTOCOL, TO TELEMETRY 3WEST/ RM 316-1; BEDSIDE REPORT GIVEN TO HOME CARE SCHEDULER.
--- NOTE | 2025-08-27 08:10 | NUR ---
RN NOTE Received pt from ICU via hospital bed for continuation of care.
--- NOTE | 2025-08-27 10:00 | NUR ---
RN NOTE Pt pulled out his norwood and removed tele monitor, reoriented pt and reinserted norwood.
[2025-08-27] MEDS: FUROSEMIDE 40 MG/4 ML VIAL IV SCH (10:29)
[2025-08-27] MEDS: POTASSIUM CHLORIDE 20 MEQ TAB.PRT.SR PO SCH (10:30)
[2025-08-27] MEDS: AMOX/CLAVULANATE 875 MG TABLET PO SCH (13:03)
--- NOTE | 2025-08-27 18:03 | NUR ---
RN NOTE Eliquis tab due at 0900 and 1700 not given, pt with pinkish color urine. Pt also pulled out norwood in the morning with bleeding noted.
--- NOTE | 2025-08-27 18:42 | NUR ---
RN CLOSING NOTE Pt resting in bed. A/O x 2, forgetful, no pain/discomfort noted at this time. On O2 via nc at 2lpm, tolerating well. With KASSIE midline, sl. With norwood connected to urine bag draining via gravity, orange urine. On tele monitor with current reading of afib-76 controlled. With mittens in bilateral wrist, skin and pulse checked. Needs attended. Safety measures maintained. Will endorse mando to car shifter.
--- NOTE | 2025-08-27 19:30 | NUR ---
ECOSYSTEM ECOLOGY PROFESSOR OPENING NOTES RECEIVED PT IN BED, ASLEEP AWAKENS EASILY, A/O X2. ON 2L O2 VIA NC, RESPIRATIONS EVEN AND UNLABORED. ON TELE MONITORING WITH CURRENT READING OF AFIB CONTROLLED AT RATE OF 70S. ON WEISS CATH TO GRAVITY , NOTED WITH ORANGE COLORED URINE OUTPUT. PT ON JED MITTENS. IV ACCESS AT KASSIE ML ON SL, PATENT AND INTACT. DENIES PAIN OR DISTRESS AT THIS TIME. SAFETY PRECAUTIONS IN PLACE: BED AT LOWEST AND LOCKED POSITION, SIDE RAILS UP X3, BED ALARM ON, CALL LIGHT BUTTON AND TABLE WITHIN REACH. PLAN OF CARE ONGOING -
[2025-08-28] VITALS: BP 116/74; TEMP 97.2; O2SAT 100
[2025-08-28 04:21] VITALS: BP 116/61; TEMP 97.7; O2SAT 100
--- NOTE | 2025-08-28 07:20 | NUR ---
INTERNET E COMMERCE SPECIALIST CLOSING NOTE PT IN BED, ASLEEP, AWAKENS EASILY A/OX2. REMAINED STABLE ON 2L O2 VIA NC, RESPIRATIONS EVEN AND UNLABORED. IV ACCESS KEPT ON SL. TELE READS AFIB CONTROLLED WITH RATE OF 60S. ON WEISS WITH CLEAR RANDY URINE OUTPUT TOTAL OF 550 ML, 1 BM. ALL DUE MEDS GIVEN, ALL NEEDS ATTENDED. KEPT PT CLEAN AND DRY. SAFETY PRECAUTIONS MAINTAINED. PT REMAINED STABLE THROUGHOUT SHIFT - ENDORSED TO AM NURSE FOR ABELARDO.
[2025-08-28 07:32] LABS: PLATELET COUNT (AUTO) 88 K/uL (150-450); RED BLOOD CELL COUNT(AUTO) 3.51 MIL/uL (4.5-6.0); RED CELL DISTRIBUTION WIDTH 16.6 % (11.5-15.0); WHITE BLOOD COUNT (AUTO) 5.4 K/uL (4.3-11.0)
--- NOTE | 2025-08-28 07:35 | NUR ---
PEOPLESOFT BUSINESS ANALYST OPENING NOTES RECEIVED PT IN BED, ASLEEP. ON WEISS CATH WITH ORANGE COLORED URINE OUTPUT PT IS A/O X2 FORGETFUL DUE TO DEMENTIA.PT ON JED MITTENS DUE TO SAFETY . ON 2L O2 VIA NC, BREATHING EVEN AND UNLABORED. NO INDICATION OF ACUTE RESPIRATORY DISTRESS NOTED ON TELE MONITORING WITH CURRENT READING OF AFIB CONTROLLED AT RATE OF 70S. IV ACCESS KASSIE ML ON SL, PATENT AND INTACT. ALL FALL AND SAFETY PRECAUTIONS IN PLACE: BED AT LOWEST AND LOCKED POSITION, SIDE RAILS UP X3, BED ALARM ON, CALL LIGHT BUTTON AND TABLE WITHIN REACH. PLAN OF CARE ONGOING -
[2025-08-28 08:00] VITALS: BP 116/61; TEMP 97.9; O2SAT 98
[2025-08-28] MEDS ORDERED: AMOX1TAB16 PO (08:10)
[2025-08-28] MEDS ORDERED: PANT40TA49 PO (08:10)
[2025-08-28] MEDS ORDERED: SULF1TAB48 PO (08:13)
[2025-08-28] MEDS: SULFAMETH/TRIMETH 800/160 MG 1 UDTAB TABLET PO SCH (08:31)
[2025-08-28 08:37] LABS: ASPARTATE AMINOTRANSFERASE 23.0 U/L (15-37); CALCIUM, SERUM 8.9 mg/dL (8.5-10.1); CREATININE 1.4 mg/dL (0.6-1.3); PHOSPHORUS 3.8 mg/dL (2.5-4.9); SODIUM SERUM 140.0 mmol/L (136-145); TOTAL PROTEIN, SERUM 6.9 g/dL (6.4-8.2); UREA NITROGEN, BLOOD 26.0 mg/dL (7-18)
[2025-08-28 12:00] VITALS: BP 108/68; TEMP 98.1; O2SAT 96
[2025-08-28 12:26] LABS: EOSINOPHILS % (MANUAL) 3 % (0-4); LYMPHOCYTES % (MANUAL) 18 % (16-48); MONOCYTES % (MANUAL) 12 % (0-11.0); NEUTROPHILS % (MANUAL) 67 (42-76); PLATELET ESTIMATE DECREASED
[2025-08-28 16:00] VITALS: BP 115/61; TEMP 98.1; O2SAT 95
--- NOTE | 2025-08-28 17:40 | NUR ---
TELE DC RN NOTE PT LEFT UNIT AT 1745 WITH AMBULANCE ACCOMPANIED WITH 2 JIG BORING MACHINE SET UP OPERATOR. ON ROOM AIR, BREATHING EVEN AND UNLABORED, NO INDICATION OF ACUTE RESPIRATORY DISTRESS NOTED REMOVED WEISS CATH AND NO INDICATION OF ACUTE URINARY RETENTION NOTED, BLADDER SCAN DONE WITH 160ML URINE IN BLADER. ML AND NAME BAND REMOVED PRIOR TO DC PHOTO TAKEN FROM BILATERAL LOWER EXTREMITIES AND PLACED IN CHART PT LEFT UNIT IN STABLE CONDITION ALL DC AND BELONGING LIST SIGNED
[2025-08-29 01:09] LABS: PTH, INTACT 28 pg/mL (15-65)
[2025-08-31 13:10] LABS: *SPE A/G RATIO 0.8 (0.7-1.7); *SPE ALBUMIN 3.1 g/dL (2.9-4.4); *SPE ALPHA-1-GLOBULIN 0.4 g/dL (0.0-0.4); *SPE ALPHA-2-GLOBULIN 0.8 g/dL (0.4-1.0); *SPE BETA GLOBULIN 1.2 g/dL (0.7-1.3); *SPE GLOBULIN, TOTAL 3.8 g/dL (2.2-3.9); *SPE M-SPIKE Not Observed g/dL (Not Observed); *SPE PROTEIN TOTAL 6.9 g/dL (6.0-8.5); *SPEGAMMA GLOBULIN 1.5 g/dL (0.4-1.8)
== END 2025-08-28 17:30 | disposition home health service (06) | DRG 177 ==
LOC: ER 11:18 → MED 11:45 → ICU 08-25 08:34 → MED 08-27 07:45 → TELE 08-28
PROVIDERS: ATTEND Internal Medicine
DX: J69.0 Pneumonitis due to inhalation of food and vomit (principal); J96.21 Acute and chronic respiratory failure with hypoxia; G93.40 Encephalopathy, unspecified; D61.818 Other pancytopenia; D68.59 Other primary thrombophilia; N13.8 Other obstructive and reflux uropathy; I48.91 Unspecified atrial fibrillation; G31.09 Other frontotemporal neurocognitive disorder; N39.0 Urinary tract infection, site not specified; Z79.01 Long term (current) use of anticoagulants; N18.9 Chronic kidney disease, unspecified; E11.51 Type 2 diabetes mellitus with diabetic peripheral angiopathy without gangrene; I12.9 Hypertensive chronic kidney disease with stage 1 through stage 4 chronic kidney disease, or unspecified chronic kidney disease; F32.A Depression, unspecified; E66.01 Morbid (severe) obesity due to excess calories; F02.83 Dementia in other diseases classified elsewhere, unspecified severity, with mood disturbance; E11.22 Type 2 diabetes mellitus with diabetic chronic kidney disease; E11.65 Type 2 diabetes mellitus with hyperglycemia; N40.1 Benign prostatic hyperplasia with lower urinary tract symptoms; Z79.84 Long term (current) use of oral hypoglycemic drugs; R13.10 Dysphagia, unspecified; Z79.899 Other long term (current) drug therapy; Z88.0 Allergy status to penicillin; R79.89 Other specified abnormal findings of blood chemistry; M89.8X9 Other specified disorders of bone, unspecified site; G47.33 Obstructive sleep apnea (adult) (pediatric); R31.9 Hematuria, unspecified
CPT/HCPCS: 36415; 70450-TC; 71045-TC; 76770-TC; 80048-TC; 80053-TC; 80061-TC; 80076-TC; 81001; 82550-TC; 82570-TC; 82803-TC; 83540-TC; 83605-TC; 83735-TC; 83970; 84100-TC; 84155; 84165; 84300-TC; 84443-TC; 84484-TC; 85027-TC; 85610-TC; 85730-TC; 87040-TC; 87081-TC; 87086-TC; 87186-TC; 92526; 92611; A4216; A4217; A4223; G0378; J0692; J1938; J1956; J2470; J3490; J7050; J7060; Q9967

== ENCOUNTER 2025-09-19 12:14 | Inpatient (IN) | payer MEDICARE, OTHER ==
[~2025-09-19] VITALS: Ht 182.9 cm; Wt 119.1 kg
[~2025-09-19 12:14] MED LIST changes: -ASPI-1169 PO; +ATOR20TA PO; +GUAI-755 PO; +HYDR-4076 PO; -MELA3TAB41 PO; +MELA5TAB PO; +MELA5TAB25 PO; +METF-881 PO; -METO25TA20 PO; +METO25TA6 PO; -MUPI22OI2 TP; +PANT40TA49 PO; -PARO30TA4 PO; +SULF1TAB48 PO; +TRAZ-182 PO; +TRAZ-257 PO
[2025-09-19] MEDS: IV LR 1000 ML 1,000 ML BAG IV ONE (13:00)
[2025-09-19 13:11] LABS: CALCIUM, SERUM 9.5 mg/dL (8.5-10.1); CREATININE 1.2 mg/dL (0.6-1.3); PLATELET COUNT (AUTO) 75 K/uL (150-450); RED BLOOD CELL COUNT(AUTO) 3.67 MIL/uL (4.5-6.0); RED CELL DISTRIBUTION WIDTH 16.5 % (11.5-15.0); SODIUM SERUM 141.0 mmol/L (136-145); UREA NITROGEN, BLOOD 28.0 mg/dL (7-18); WHITE BLOOD COUNT (AUTO) 5.9 K/uL (4.3-11.0)
[2025-09-19 13:15] LABS: INR 1.2 (0.91-1.10)
[2025-09-19] MEDS ORDERED: PANT40TA2 PO (13:16)
[2025-09-19 13:17] LABS: ASPARTATE AMINOTRANSFERASE 457.0 U/L (15-37); TOTAL PROTEIN, SERUM 7.6 g/dL (6.4-8.2)
[2025-09-19] MEDS: CEFEPIME 1 GM in IV D5W 50 ML IV ONE (13:30)
[2025-09-19 13:35] LABS: LACTIC ACID 1.9 mmol/L (0.4-2.0)
[2025-09-19 13:50] LABS: BASOPHILS % (MANUAL) 0 % (0.0-2.0); EOSINOPHILS % (MANUAL) 0 % (0-4); LYMPHOCYTES % (MANUAL) 9 % (16-48); MONOCYTES % (MANUAL) 12 % (0-11.0); NEUTROPHILS % (MANUAL) 79 (42-76); PLATELET ESTIMATE DECREASED
[2025-09-19 15:59] LABS: APPEARANCE,URINE CLEAR (CLEAR); BLOOD, URINE NEGATIVE Ery/uL (NEGATIVE); LEUKOCYTE ESTERASE ,URINE NEGATIVE (NEGATIVE); NITRITE, URINE NEGATIVE (NEGATIVE); UGLUCOSE NEGATIVE (NEGATIVE)
[2025-09-19 16:28] LABS: ADD URINE CULTURE NO
[2025-09-19] MEDS ORDERED: ACETAMINOPHEN 650 MG/SUPP.RECT RC PRN (19:30)
[2025-09-19] MEDS ORDERED: Z GUARD REMEDY 4 OZ OINT TP PRN (19:30)
[2025-09-19] MEDS ORDERED: ONDANSETRON HCL/PF 4 MG/2 ML VIAL IVP PRN (19:30)
[2025-09-19] MEDS ORDERED: MORPHINE SULFATE INJ 2 MG/ML DISP.SYRIN IV PRN (19:30)
[2025-09-19 20:00] VITALS: BP 139/81; TEMP 97.5; O2SAT 97
[2025-09-19] MEDS ORDERED: DEXTROSE 50%-WATER 50 ML DISP.SYRIN IV PRN (20:00)
[2025-09-19 20:10] VITALS: BP_SYST 139; BP_SYST 143; BP_DIAS 81; BP_DIAS 93; TEMP 97.5; TEMP 98.1; O2SAT 100; O2SAT 97
[2025-09-19] MEDS ORDERED: ENOXAPARIN SODIUM 30 MG/0.3 ML DISP.SYRIN SQ SCH (21:00)
[2025-09-19] MEDS: PANTOPRAZOLE 40 MG VIAL IV SCH (21:42)
[2025-09-19] MEDS: ENOXAPARIN SODIUM 30 MG/0.3 ML DISP.SYRIN SQ ONE (21:48)
[2025-09-19] MEDS ORDERED: CEFTRIAXONE 1GM BAG (ER ONLY) 50 ML IV ONE (21:54)
[2025-09-19] MEDS: IV D5/ 0.9% NACL 1,000 ML IV PRN (21:55)
[2025-09-19] MEDS: CEFTRIAXONE 1 G in IV D5W 50 ML IV SCH (22:00)
[2025-09-20] VITALS: BP 114/62; TEMP 97.5; O2SAT 97
[2025-09-20] MEDS ORDERED: METRONIDAZOLE 500MG/ NS 100ML 200 ML IV ONE (00:08)
[2025-09-20] MEDS: INSULIN REGULAR, HUMAN 100 UNIT/ML 3 ML VIAL SQ PRN (00:12)
[2025-09-20] MEDS: BLOOD SUGAR DIAGNOSTIC 1 EACH STRIP IN SCH (00:12)
[2025-09-20] MEDS: METRONIDAZOLE 500MG/ NS 100ML 500 MG in PREMIX 1 EA IV SCH (00:45)
[2025-09-20 04:00] VITALS: BP 120/58; TEMP 97.5; O2SAT 97
[2025-09-20 06:45] LABS: PLATELET COUNT (AUTO) 68 K/uL (150-450); RED BLOOD CELL COUNT(AUTO) 3.54 MIL/uL (4.5-6.0); RED CELL DISTRIBUTION WIDTH 16.9 % (11.5-15.0); WHITE BLOOD COUNT (AUTO) 9.2 K/uL (4.3-11.0)
[2025-09-20 07:00] VITALS: BP 135/63; TEMP 97.5; O2SAT 95
[2025-09-20] MEDS ORDERED: IV NS 0.9% 1,000 ML IV PRN (07:00)
[2025-09-20 07:17] LABS: CALCIUM, SERUM 9.3 mg/dL (8.5-10.1); CREATININE 1.2 mg/dL (0.6-1.3); PHOSPHORUS 2.8 mg/dL (2.5-4.9); SODIUM SERUM 142.0 mmol/L (136-145); UREA NITROGEN, BLOOD 23.0 mg/dL (7-18)
[2025-09-20 08:30] LABS: LDL 28.0 mg/dL (0-99)
[2025-09-20 12:31] LABS: BASOPHILS % (MANUAL) 0 % (0.0-2.0); EOSINOPHILS % (MANUAL) 0 % (0-4); LYMPHOCYTES % (MANUAL) 5 % (16-48); MONOCYTES % (MANUAL) 12 % (0-11.0); NEUTROPHILS % (MANUAL) 83 (42-76); PLATELET ESTIMATE DECREASED
[2025-09-20] MEDS: CEFTRIAXONE 2 G in IV D5W 100 ML IV SCH (14:43)
[2025-09-20 14:56] LABS: ASPARTATE AMINOTRANSFERASE 244.0 U/L (15-37); TOTAL PROTEIN, SERUM 7.1 g/dL (6.4-8.2)
[2025-09-20 15:00] VITALS: BP 159/89; TEMP 97.9; O2SAT 98
[2025-09-20 20:00] VITALS: BP 123/59; TEMP 98.1; O2SAT 97
[2025-09-21] VITALS (9 sets, daily range): BP systolic 98–153; BP diastolic 53–94; TEMP 97.3–98.7; O2SAT 94–99
[2025-09-21 07:35] LABS: PLATELET COUNT (AUTO) 68 K/uL (150-450); RED BLOOD CELL COUNT(AUTO) 3.48 MIL/uL (4.5-6.0); RED CELL DISTRIBUTION WIDTH 16.6 % (11.5-15.0); WHITE BLOOD COUNT (AUTO) 7.9 K/uL (4.3-11.0)
[2025-09-21 08:05] LABS: ASPARTATE AMINOTRANSFERASE 139.0 U/L (15-37); CALCIUM, SERUM 9.1 mg/dL (8.5-10.1); CREATININE 1.1 mg/dL (0.6-1.3); SODIUM SERUM 141.0 mmol/L (136-145); TOTAL PROTEIN, SERUM 7.2 g/dL (6.4-8.2); UREA NITROGEN, BLOOD 22.0 mg/dL (7-18)
[2025-09-21 14:43] LABS: LYMPHOCYTES % (MANUAL) 7 % (16-48); MONOCYTES % (MANUAL) 10 % (0-11.0); NEUTROPHILS % (MANUAL) 83 (42-76); PLATELET ESTIMATE DECREASED
[2025-09-21 21:07] LABS: HBSAG SCREEN Negative (Negative); HEPATITIS A AB, IgM Negative (Negative); HEPATITIS B CORE AB, IgM Negative (Negative)
[2025-09-22] VITALS: BP 154/91; TEMP 98.1; O2SAT 96
[2025-09-22 04:00] VITALS: BP 150/84; TEMP 98.2; O2SAT 96
[2025-09-22 08:00] VITALS: BP_SYST 149; BP_DIAS 62; BP_DIAS 88; TEMP 97.9; TEMP 98; O2SAT 97; O2SAT 99
[2025-09-22 08:12] LABS: PLATELET COUNT (AUTO) 71 K/uL (150-450); RED BLOOD CELL COUNT(AUTO) 3.51 MIL/uL (4.5-6.0); RED CELL DISTRIBUTION WIDTH 16.7 % (11.5-15.0); WHITE BLOOD COUNT (AUTO) 6.0 K/uL (4.3-11.0)
[2025-09-22 08:19] LABS: ASPARTATE AMINOTRANSFERASE 91.0 U/L (15-37); CALCIUM, SERUM 9.0 mg/dL (8.5-10.1); CREATININE 1.0 mg/dL (0.6-1.3); SODIUM SERUM 138.0 mmol/L (136-145); TOTAL PROTEIN, SERUM 7.1 g/dL (6.4-8.2); UREA NITROGEN, BLOOD 20.0 mg/dL (7-18)
[2025-09-22 12:00] VITALS: BP 147/89; TEMP 97.5; O2SAT 98
[2025-09-22 12:02] LABS: EOSINOPHILS % (MANUAL) 1 % (0-4); LYMPHOCYTES % (MANUAL) 9 % (16-48); MONOCYTES % (MANUAL) 2 % (0-11.0); NEUTROPHILS % (MANUAL) 88 (42-76); PLATELET ESTIMATE DECREASED
[2025-09-22 16:00] VITALS: BP 149/91; TEMP 97.5; O2SAT 98
[2025-09-22 20:34] VITALS: BP 149/90; TEMP 97.5; O2SAT 96
[2025-09-23] VITALS (9 sets, daily range): BP systolic 140–152; BP diastolic 77–92; TEMP 97.2–98; O2SAT 95–98
[2025-09-23 08:13] LABS: PLATELET COUNT (AUTO) 67 K/uL (150-450); RED BLOOD CELL COUNT(AUTO) 3.42 MIL/uL (4.5-6.0); RED CELL DISTRIBUTION WIDTH 17.1 % (11.5-15.0); WHITE BLOOD COUNT (AUTO) 5.5 K/uL (4.3-11.0)
[2025-09-23 08:18] LABS: ASPARTATE AMINOTRANSFERASE 65.0 U/L (15-37); CALCIUM, SERUM 8.7 mg/dL (8.5-10.1); CREATININE 0.9 mg/dL (0.6-1.3); SODIUM SERUM 140.0 mmol/L (136-145); TOTAL PROTEIN, SERUM 7.1 g/dL (6.4-8.2); UREA NITROGEN, BLOOD 19.0 mg/dL (7-18)
[2025-09-23 11:04] LABS: EOSINOPHILS % (MANUAL) 1 % (0-4); LYMPHOCYTES % (MANUAL) 8 % (16-48); MONOCYTES % (MANUAL) 2 % (0-11.0); NEUTROPHILS % (MANUAL) 89 (42-76); PLATELET ESTIMATE DECREASED
[2025-09-23] MEDS ORDERED: PANT40VI IV (12:56)
[2025-09-23] MEDS ORDERED: METR500P3 IV (12:56)
[2025-09-23] MEDS ORDERED: CEFT1FRO2 IV (12:56)
== END 2025-09-23 23:51 | disposition short-term general hospital (02) | DRG 445 ==
LOC: ER 12:19 → MED 19:41 → TELE 20:17
PROVIDERS: ADMIT Nurse Practitioner Acute Care; ATTEND Nurse Practitioner Acute Care
DX: K80.01 Calculus of gallbladder with acute cholecystitis with obstruction (principal); D68.9 Coagulation defect, unspecified; I48.20 Chronic atrial fibrillation, unspecified; E11.22 Type 2 diabetes mellitus with diabetic chronic kidney disease; G31.09 Other frontotemporal neurocognitive disorder; D69.6 Thrombocytopenia, unspecified; Z79.01 Long term (current) use of anticoagulants; I12.9 Hypertensive chronic kidney disease with stage 1 through stage 4 chronic kidney disease, or unspecified chronic kidney disease; N18.9 Chronic kidney disease, unspecified; E66.9 Obesity, unspecified; E11.51 Type 2 diabetes mellitus with diabetic peripheral angiopathy without gangrene; R74.01 Elevation of levels of liver transaminase levels; Z20.822 Contact with and (suspected) exposure to COVID-19; F02.80 Dementia in other diseases classified elsewhere, unspecified severity, without behavioral disturbance, psychotic disturbance, mood disturbance, and anxiety; Z88.0 Allergy status to penicillin; Z79.84 Long term (current) use of oral hypoglycemic drugs; R79.89 Other specified abnormal findings of blood chemistry; E80.6 Other disorders of bilirubin metabolism; I87.8 Other specified disorders of veins; Z79.899 Other long term (current) drug therapy; H40.9 Unspecified glaucoma; N40.0 Benign prostatic hyperplasia without lower urinary tract symptoms; S80.11XA Contusion of right lower leg, initial encounter; X58.XXXA Exposure to other specified factors, initial encounter; Z68.35 Body mass index [BMI] 35.0-35.9, adult
CPT/HCPCS: 36415; 71045-TC; 76700-TC; 78226; 80048-TC; 80061-TC; 80076-TC; 81001; 82140-TC; 82962-TC; 83605-TC; 83690-TC; 83735-TC; 84100-TC; 84443-TC; 85027-TC; 85730-TC; 87040-TC; 87081-TC; 87086-TC; 93307-TC; 93970-TC; A4216; A4223; A9537; G0378; J0692; J0696; J1650; J1815; J2470; J7042; J7050; J7060; J7120